=== PATIENT | male | born 1985 ===

== ENCOUNTER 2024-09-12 11:15 | Emergency (ER) | payer SELFPAY ==
--- NOTE | 2024-09-12 11:27 | ED_ITS ---
HPI - Ear Problem General Chief complaint: Ear Stated complaint: Ear Pain Time Seen by Provider: 09/12/24 11:27 Source: patient Mode of arrival: ambulatory Limitations: no limitations History of Present Illness HPI Narrative: 39-year-old male presented for complaint of decreased hearing from the left ear. Onset yesterday after using Q-tips. He states he pushed the wax further into the ear. He denies any ear pain, tenderness, dizziness, ear drainage. MD Complaint: ear pain Review of Systems Review of Systems: CONSTITUTIONAL: Denies malaise, chills, or fever. EYES: Denies visual changes, redness, or discharge. ENT: Denies rhinorrhea, congestion, sinus pain, and sore throat. Reports Dec reased hearing CARDIOVASCULAR: Denies chest pain, palpitations, or edema. RESPIRATORY: Denies cough or dyspnea. GASTROINTESTINAL: Denies abdominal pain, nausea, vomiting, diarrhea SKIN: Denies rash or itching. MUSCULOSKELETAL: Denies myalgia. NEUROLOGIC: Denies headache. All systems reviewed & are unremarkable except as noted in HPI and below PMFSH Social History Social History Smoking status: Current every day smoker Alcohol intake: current Comments At time of signature, agree with nursing past medical, surgical, social and family history. There is no relevant family history pertinent to the presenting complaint Exam Narrative: GENERAL: Well-appearing EYES: PERRLA, conjunctivae clear ENT: Nares clear. Mucous membranes moist. right TM with normal light reflex, mild excess cerumen to the canal. Left TM unable to visualize due to cerumen impaction. Oropharynx not erythematous without lesions. no drooling, no hoarseness, no trismus, uvula midline. NECK: Supple. No lymphadenopathy CHEST: Clear to auscultation, breath sounds equal. HEART: Regular rate and rhythm. SKIN: Warm, dry, no rash. NEURO: Alert and oriented x3. PSYCH: Normal mood and affect Course Course Emergency Course: Patient is aware of diagnosis, understands and agrees to treatment plan. Anticipatory guidance given. Patient agrees to follow-up as directed and is aware of reasons to seek care at the emergency department. Portions of this record may have been created with voice recognition software Level of Care: Express Care Visit Vital Signs Vital signs: Vital Signs Temperature 97.8 F 09/12/24 11:33 Pulse Rate 121 H 09/12/24 11:33 Respiratory Rate 16 09/12/24 11:33 Blood Pressure 146/102 H 09/12/24 11:33 Pulse Oximetry 98 09/12/24 11:33 Temperature 97.8 F 09/12/24 11:33 Pulse Rate 121 H 09/12/24 11:33 Respiratory Rate 16 09/12/24 11:33 Blood Pressure 146/102 H 09/12/24 11:33 Pulse Oximetry 98 09/12/24 11:33 Reviewed Procedures Ear Wax Removal Left Ear: Ear Wax Removal Date: 09/12/24 Cerumenolytic Used: other ( Equal parts warm water and hydrogen peroxide) Results: Re-examined: cerumen removed completely TM Examination: TM(s) intact, normal appearance Ear Canal Exam: atraumatic Patient Tolerated Procedure: well and no complications Technique: ear canal irrigated and ear canal curetted Additional Comments: large amount of soft cerumen removed without difficulty, patient reported immediate improvement in hearing Medical Decision Making MDM Narrative Medical decision making narrative: discussed physical exam findings consistent with left cerumen impaction. Patient tolerated cerumen removal and reported immediate improvement in hearing. Advised supportive measures and signs/symptoms to go to the ER. Patient is appropriate for outpatient treatment and follow-up. Differential Diagnosis Differential Diagnosis: Coronavirus, strep pharyngitis, allergic rhinitis, upper respiratory tract infection, sinusitis, rhinosinusitis, nasopharyngitis, viral pharyngitis, otitis media, otitis externa, eustachian tube dysfunction, foreign body, cerumen impaction. Vital Signs Vital Signs: Vital Signs Temperature 97.8 F 09/12/24 11:33 Pulse Rate 121 H 09/12/24 11:33 Respiratory Rate 16 09/12/24 11:33 Blood Pressure 146/102 H 09/12/24 11:33 Pulse Oximetry 98 09/12/24 11:33 Temperature 97.8 F 09/12/24 11:33 Pulse Rate 121 H 09/12/24 11:33 Respiratory Rate 16 09/12/24 11:33 Blood Pressure 146/102 H 09/12/24 11:33 Pulse Oximetry 98 09/12/24 11:33 Discharge Plan Discharge Clinical Impression: Cerumen impaction Qualifiers: Laterality: left Qualified Code(s): H61.22 - Impacted cerumen, left ear Patient Disposition: Home Condition: Stable Instructions: Antibiotic Form, How to Use Ear Drops (ED) Additional Instructions: Please use a earwax softening agent such as [id number] Debrox or a mixture of 1 part hydrogen peroxide in 1 part warm water several times weekly to keep your earwax soft and prevent further impaction. Please follow-up with your primary care doctor if you develop new symptoms. If you have urgent concerns please go to the ER. Patient Language: Montenegrin Follow-up/Referrals: PHYSICIAN,ICT CUSTOMER SUPPORT OFFICER [Primary Care Provider] - Time of Disposition: 11:45
[2024-09-12 11:33] VITALS: BP 146/102; PULSE 121; RESP 16; TEMP 36.6; O2SAT 98
== END 2024-09-12 11:47 | disposition home or self-care (01) ==
PROVIDERS: Emergency Provider Nurse Practitioner Family
DX: H61.22 Impacted cerumen, left ear (principal); F17.200 Nicotine dependence, unspecified, uncomplicated
CPT/HCPCS: 69210; 99202; A9270; G0463

== ENCOUNTER 2025-01-19 18:47 | Emergency (ER) | payer MEDICAID, SELFPAY ==
[2025-01-19] VITALS (18 sets, daily range): BP systolic 138–161; BP diastolic 91–111; PULSE 86–113; RESP 12–22; O2SAT 92–96
--- NOTE | 2025-01-19 19:01 | ECG_ITS ---
Test Date: 2025-01-19 20:26:29 Measurements Intervals [place] Rate: 103 P: 49 MN: 122 QRS: -10 QRSD: 108 T: 52 QT: 367 QTc: 482 Interpretive Statements SINUS TACHYCARDIA No previous ECG available for comparison Electronically Signed On 01-19-2025 22:35:19 [employer] by Dewey Castano D.O
[2025-01-19 19:15] LABS: Hematocrit 48.8 % (42.0-52.0); Hemoglobin 16.3 g/dL (14.0-18.0); Immature Granulocyte Percent A 0.4 % (0-0.5); Lymphocytes Absolute Auto 2.05 K/mm3 (0.9-3.2); Mean Corpuscular HGB Conc 33.4 g/dl (32-36); Mean Corpuscular Hemoglobin 31.8 pg (26-34); Mean Corpuscular Volume 95.3 fl (80-100); Nucleated Red Blood Cells Absolute Auto 0.000 K/mm3 (0.0-0.012); Nucleated Red Blood Cells Perc 0.0 % (0.0-0.2); Platelet Count Result 194 k/mm3 (150-375); Red Blood Count 5.12 M/mm3 (4.6-6.20); White Blood Count 10.6 K/mm3 (4.5-10.0)
--- NOTE | 2025-01-19 19:16 | ED.GENADULT ---
HPI - General Adult General Chief complaint: Alcohol <Jose Vilchis MD - Last Filed: 01/20/25 22:04> Stated complaint: etoh <Jose Vilchis MD - Last Filed: 01/20/25 22:04> Time Seen by Provider: 01/19/25 18:54 <Jose Vilchis MD - Last Filed: 01/20/25 22:04> History of Present Illness HPI narrative: 39-year-old male present to the emergency department for evaluation of homicidal ideation and depression. Patient reports and 2022 he got . Patient states he has been drinking more and hiding his drinking from his family. Patient also does admit to smoking marijuana today. Patient felt that the emotions were worse and he fell he needed to be evaluated. Patient states he is unsure if he still has homicidal ideation. <Jose Vilchis MD - Last Filed: 01/20/25 22:04> Related Data Home medications: Home Medications ?Medication ?Instructions ?Recorded ?Confirmed ?Last Taken ?Type allopurinol 100 mg tablet mg 09/12/24 Unknown History bupropion HCl 150 mg 24 hr tablet, mg PO 09/12/24 Unknown History extended release clonazepam 1 mg tablet mg 09/12/24 Unknown History sertraline 100 mg tablet mg 09/12/24 Unknown History tadalafil 5 mg tablet mg 09/12/24 Unknown History trazodone 100 mg tablet mg 09/12/24 Unknown History <Jose Vilchis MD - Last Filed: 01/20/25 22:04> Allergies/adverse reactions: Allergies Allergy/AdvReac Type Severity Reaction Status Date / Time No Known Allergies Allergy Verified 01/19/25 19:00 <Jose Vilchis MD - Last Filed: 01/20/25 22:04> Review of Systems Review of Systems: All systems reviewed & are unremarkable except as noted in HPI and below <Jose Vilchis MD - Last Filed: 01/20/25 22:04> [facility] Social History Social History: Social History Smoking status: Current every day smoker Alcohol intake: current <Jose Vilchis MD - Last Filed: 01/20/25 22:04> Exam Narrative: APPEARANCE: depressed affect HEAD: normocephalic, atraumatic. EYES: PERRLA/EOMI, conjunctivae clear. NOSE: Normal no drainage EARS:TMS clear with good light reflex. THROAT: Pharynx clear, no exudate. NECK: Supple. No adenopathy, no masses. RESPIRATORY: Airway patent, respirations nonlabored. Clear to auscultation bilaterally, no rales, rhonchi, wheezing. CARDIOVASCULAR: Regular rate and rhythm without murmurs rubs or gallops. ABDOMINAL: Soft, nontender, nondistended, normal bowel sounds MUSCULOSKELETAL: Moves all extremities. Strength/ROM intact, No edema, No calf tenderness. NEURO: Alert. Cranial nerves II through XII intact. Good gait. Good coordination SKIN: Warm, dry. Normal Color <Jose Vilchis MD - Last Filed: 01/20/25 22:04> Course Course Emergency Course: Patient signed out to me. No issues overnight. Repeat EtOH 87 which has likely metabolized within the time period it took for the lab to result. Patient medically cleared for assessment by psych/crisis. Patient then noted to be slightly tremulous by the RN. Notably patient not been taking his Klonopin and per review it appears that dose is 1 mg b.i.d.. He reportedly had told the nurse that at baseline he also has a slight tremor. CIWA 6; home dose Klonipin given. Repeat CIWA 2 but reportedly tells nurse still a bit anxious. I did evaluate the patient at bedside and he does appear to be slightly tremulous and states that he was diaphoretic. Mom is at bedside and he says that she can stay. Mother has been in touch with patient's therapist who notes she can be contacted if desired. He reports going through a difficult divorce. He is supposed to be on Klonipin, sertraline, and trazadone QHS. Last alcohol consumption was 5 p.m.. He has been drinking heavily for approximately 2 years. No previous history of withdrawal or complicated withdrawal though he does believe he is withdrawing at this time. Repeat CIWA 7; 25mg chlordiazepoxide ordered. Will be signed out to oncoming ED physician. <Neeru Sawant MD - Last Filed: 01/20/25 06:51> Patient signed out to me. No issues overnight. Repeat EtOH 87 which has likely metabolized within the time period it took for the lab to result. Patient medically cleared for assessment by psych/crisis. Patient then noted to be slightly tremulous by the RN. Notably patient not been taking his Klonopin and per review it appears that dose is 1 mg b.i.d.. He reportedly had told the nurse that at baseline he also has a slight tremor. CIWA 6; home dose Klonipin given. Repeat CIWA 2 but reportedly tells nurse still a bit anxious. I did evaluate the patient at bedside and he does appear to be slightly tremulous and states that he was diaphoretic. Mom is at bedside and he says that she can stay. Mother has been in touch with patient's therapist who notes she can be contacted if desired. He reports going through a difficult divorce. He is supposed to be on Klonipin, sertraline, and trazadone QHS. Last alcohol consumption was 5 p.m.. He has been drinking heavily for approximately 2 years. No previous history of withdrawal or complicated withdrawal though he does believe he is withdrawing at this time. Repeat CIWA 7; 25mg chlordiazepoxide ordered. Will be signed out to oncoming ED physician. I assumed care of the patient at of 700. Patient had some mild anxiety after vomiting up his Librium. He was given some IV fluid as well as antiemetics and Valium. He was redosed with his Librium and tolerated transfer to outside facility which accepted him as a involuntary transfer after crisis evaluation. <Long Almazan MD - Last Filed: 01/20/25 19:52> Vital Signs Vital signs: Vital Signs Pulse Rate 111 H 01/19/25 18:43 Respiratory Rate 16 01/19/25 18:43 Blood Pressure 161/106 H 01/19/25 18:43 Pulse Oximetry 92 01/19/25 18:43 Oxygen Delivery Room Air 01/19/25 18:43 Temperature 98.5 F 01/20/25 10:34 Pulse Rate 86 01/20/25 13:30 Respiratory Rate 18 01/20/25 13:30 Blood Pressure 145/106 H 01/20/25 13:04 Pulse Oximetry 97 01/20/25 13:30 Oxygen Delivery Room Air 01/19/25 18:43 <Jose Vilchis MD - Last Filed: 01/20/25 22:04> Vital Signs Pulse Rate 111 H 01/19/25 18:43 Respiratory Rate 16 01/19/25 18:43 Blood Pressure 161/106 H 01/19/25 18:43 Pulse Oximetry 92 01/19/25 18:43 Oxygen Delivery Room Air 01/19/25 18:43 Temperature 98.5 F 01/20/25 10:34 Pulse Rate 86 01/20/25 13:30 Respiratory Rate 18 01/20/25 13:30 Blood Pressure 145/106 H 01/20/25 13:04 Pulse Oximetry 97 01/20/25 13:30 Oxygen Delivery Room Air 01/19/25 18:43 <Neeru Sawant MD - Last Filed: 01/20/25 06:51> Vital Signs Pulse Rate 111 H 01/19/25 18:43 Respiratory Rate 16 01/19/25 18:43 Blood Pressure 161/106 H 01/19/25 18:43 Pulse Oximetry 92 01/19/25 18:43 Oxygen Delivery Room Air 01/19/25 18:43 Temperature 98.5 F 01/20/25 10:34 Pulse Rate 86 01/20/25 13:30 Respiratory Rate 18 01/20/25 13:30 Blood Pressure 145/106 H 01/20/25 13:04 Pulse Oximetry 97 01/20/25 13:30 Oxygen Delivery Room Air 01/19/25 18:43 <Long Almazan MD - Last Filed: 01/20/25 19:52> Medical Decision Making MDM Narrative Medical decision making narrative: 39-year-old male present to the emergency department for evaluation for depression associated with a divorce from 2022. Patient is heavily intoxicated at time of initial evaluation. Patient is afebrile but does have a leukocytosis of 10.6 and hemoglobin of 16.3. INR 0.9. No significant abnormalities on his CMP. Patient does have mild elevation AST and ALT with a normal alk-phos and normal T bili. UA was positive for ketones but negative for infection. Patient was negative for salicylates, acetaminophen but did have a blood alcohol of 344 at 7:00 p.m. repeat blood alcohol is pending. Once patient is sober he will need to be evaluated by crisis. Patient was evaluated by crisis and patient was accepted for inpatient psychiatric hospitalization. Patient was well-appearing at time of transport. <Jose Vilchis MD - Last Filed: 01/20/25 22:04> Differential Diagnosis Differential Diagnosis: Suicidal ideation, homicidal ideation, alcohol intoxication <Jose Vilchis MD - Last Filed: 01/20/25 22:04> Vital Signs Vital Signs: Vital Signs Pulse Rate 111 H 01/19/25 18:43 Respiratory Rate 16 01/19/25 18:43 Blood Pressure 161/106 H 01/19/25 18:43 Pulse Oximetry 92 01/19/25 18:43 Oxygen Delivery Room Air 01/19/25 18:43 Temperature 98.5 F 01/20/25 10:34 Pulse Rate 86 01/20/25 13:30 Respiratory Rate 18 01/20/25 13:30 Blood Pressure 145/106 H 01/20/25 13:04 Pulse Oximetry 97 01/20/25 13:30 Oxygen Delivery Room Air 01/19/25 18:43 <Jose Viclhis MD - Last Filed: 01/20/25 22:04> Vital Signs Pulse Rate 111 H 01/19/25 18:43 Respiratory Rate 16 01/19/25 18:43 Blood Pressure 161/106 H 01/19/25 18:43 Pulse Oximetry 92 01/19/25 18:43 Oxygen Delivery Room Air 01/19/25 18:43 Temperature 98.5 F 01/20/25 10:34 Pulse Rate 86 01/20/25 13:30 Respiratory Rate 18 01/20/25 13:30 Blood Pressure 145/106 H 01/20/25 13:04 Pulse Oximetry 97 01/20/25 13:30 Oxygen Delivery Room Air 01/19/25 18:43 <Neeru Sawant MD - Last Filed: 01/20/25 06:51> Vital Signs Pulse Rate 111 H 01/19/25 18:43 Respiratory Rate 16 01/19/25 18:43 Blood Pressure 161/106 H 01/19/25 18:43 Pulse Oximetry 92 01/19/25 18:43 Oxygen Delivery Room Air 01/19/25 18:43 Temperature 98.5 F 01/20/25 10:34 Pulse Rate 86 01/20/25 13:30 Respiratory Rate 18 01/20/25 13:30 Blood Pressure 145/106 H 01/20/25 13:04 Pulse Oximetry 97 01/20/25 13:30 Oxygen Delivery Room Air 01/19/25 18:43 <Long Almazan MD - Last Filed: 01/20/25 19:52> Lab Data Lab results reviewed: Yes I reviewed the patient's lab results. <Jose Vilchis MD - Last Filed: 01/20/25 22:04> Result diagrams: 01/19/25 19:09 01/19/25 19:09 <Jose Vilchis MD - Last Filed: 01/20/25 22:04> Labs: Lab Results 01/19/25 01/19/25 01/20/25 Range/Units 19:09 19: 04:58 WBC 10.6 H (4.5-10.0) K/mm3 RBC 5.12 (4.6-6.20) M/mm3 Hgb 16.3 (14.0-18.0) g/dL Hct 48.8 (42.0-52.0) % MCV 95.3 (80-100) fl MCH 31.8 (26-34) pg MCHC 33.4 (32-36) g/dl RDW 14.1 (11.5-14.5) % Plt Count 194 (150-375) k/mm3 MPV 8.5 (7.4-10.4) fl Immature Gran % (Auto) 0.4 (0-0.5) % Neut % (Auto) 71.0 (45.5-73.1) % Lymph % (Auto) 19.3 (18.3-44.2) % Josephine % (Auto) 6.7 (2.6-8.5) % Eos % (Auto) 1.8 (0-4.4) % Baso % (Auto) 0.8 (0.2-1.2) % Lymph # (Auto) 2.05 (0.9-3.2) K/mm3 Josephine # (Auto) 0.7 H (0.1-0.6) K/mm3 Eos # (Auto) 0.2 (0-0.3) K/mm3 Baso # (Auto) 0.1 (0.0-0.1) K/mm3 Abs Immat Gran (auto) 0.04 H (0.00-0.031) K/mm3 Absolute Neuts (auto) 7.5 H (1.3-6.7) K/mm3 Absolute Nucleated RBC 0.000 (0.0-0.012) K/mm3 Nucleated RBC % 0.0 (0.0-0.2) % PT 12.2 (11.1-14.7) Seconds INR 0.9 APTT 26.9 (22.3-36.8) Seconds Sodium 142 (137-145) mmol/L Potassium 4.1 (3.4-5.0) mmol/L Chloride 101 (98-107) mmol/L Carbon Dioxide 22 (22-30) mmol/L Anion Gap 19 H (4-12) mmol/L BUN 12 (9-20) mg/dL Creatinine 0.87 (0.7-1.3) mg/dL Estim Creat Clear Calc 124 ml/min Estimated GFR > 60 (59 - ) Glucose 85 (65-110) mg/dL Calcium 9.4 (8.4-10.2) mg/dL Total Bilirubin 0.4 (0.2-1.3) mg/dL AST 499 H (17-59) U/L ALT 460 H (6-50) U/L Alkaline Phosphatase 113 (38-126) U/L Total Protein 8.9 H (6.3-8.2) g/dL Albumin 5.2 H (3.5-5.1) g/dL Urine Color Yellow (Yellow) Urine Appearance Clear (Clear) Urine pH 6.0 (5.0-9.0) Ur Specific [place] 1.015 (1.001-1.035) Urine Protein 3+ H (Negative) mg/dL Urine Glucose (UA) Negative (Negative) mg/dL Urine Ketones 1+ H (Negative) mg/dL Ur Blood (Man) Trace (Negative) Urine Nitrate Negative (Negative) Urine Bilirubin Negative (Negative) Urine Urobilinogen 0.2 (<2.0) mg/dL Leukocyte Esterase Rfl Negative (Negative) KIRSTEN/UL Urine RBC 0-2 (0-2) /hpf Urine WBC 0-5 (0-3) /hpf Ur Squamous Epith Cells None seen (Few) /hpf Urine Bacteria None seen /hpf Urine Casts 3-5 Salicylates < 1.0 L (2-20) mg/dL Urine Opiates Screen Negative (Negative) Urine Methadone Screen Negative (Negative) Acetaminophen < 10 L (10-30) ug/mL Ur Barbiturates Screen Negative (Negative) Ur Phencyclidine Scrn Negative (Negative) Ur Amphetamine Screen Negative (Negative) U Benzodiazepines Scrn Negative (Negative) Urine Cocaine Screen Negative (Negative) U Cannabinoids Screen Positive A (Negative) Ethyl Alcohol 344 H* 89 (<10) mg/dL Influenza A (RT-PCR) Negative (Negative) Influenza B (RT-PCR) Negative (Negative) RSV (RT-PCR) Negative (Negative) SARS-CoV-2 RNA (RT-PCR) Negative (Negative) <Jose Vilchis MD - Last Filed: 01/20/25 22:04> Lab Results 01/19/25 01/19/25 01/20/25 Range/Units 19:09 19:25 04:58 WBC 10.6 H (4.5-10.0) K/mm3 RBC 5.12 (4.6-6.20) M/mm3 Hgb 16.3 (14.0-18.0) g/dL Hct 48.8 (42.0-52.0) % MCV 95.3 (80-100) fl MCH 31.8 (26-34) pg MCHC 33.4 (32-36) g/dl RDW 14.1 (11.5-14.5) % Plt Count 194 (150-375) k/mm3 MPV 8.5 (7.4-10.4) fl Immature Gran % (Auto) 0.4 (0-0.5) % Neut % (Auto) 71.0 (45.5-73.1) % Lymph % (Auto) 19.3 (18.3-44.2) % Josephine % (Auto) 6.7 (2.6-8.5) % Eos % (Auto) 1.8 (0-4.4) % Baso % (Auto) 0.8 (0.2-1.2) % Lymph # (Auto) 2.05 (0.9-3.2) K/mm3 Josephine # (Auto) 0.7 H (0.1-0.6) K/mm3 Eos # (Auto) 0.2 (0-0.3) K/mm3 Baso # (Auto) 0.1 (0.0-0.1) K/mm3 Abs Immat Gran (auto) 0.04 H (0.00-0.031) K/mm3 Absolute Neuts (auto) 7.5 H (1.3-6.7) K/mm3 Absolute Nucleated RBC 0.000 (0.0-0.012) K/mm3 Nucleated RBC % 0.0 (0.0-0.2) % PT 12.2 (11.1-14.7) Seconds INR 0.9 APTT 26.9 (22.3-36.8) Seconds Sodium 142 (137-145) mmol/L Potassium 4.1 (3.4-5.0) mmol/L Chloride 101 (98-107) mmol/L Carbon Dioxide 22 (22-30) mmol/L Anion Gap 19 H (4-12) mmol/L BUN 12 (9-20) mg/dL Creatinine 0.87 (0.7-1.3) mg/dL Estim Creat Clear Calc 124 ml/min Estimated GFR > 60 (59 - ) Glucose 85 (65-110) mg/dL Calcium 9.4 (8.4-10.2) mg/dL Total Bilirubin 0.4 (0.2-1.3) mg/dL AST 499 H (17-59) U/L ALT 460 H (6-50) U/L Alkaline Phosphatase 113 (38-126) U/L Total Protein 8.9 H (6.3-8.2) g/dL Albumin 5.2 H (3.5-5.1) g/dL Urine Color Yellow (Yellow) Urine Appearance Clear (Clear) Urine pH 6.0 (5.0-9.0) Ur Specific [place] 1.015 (1.001-1.035) Urine Protein 3+ H (Negative) mg/dL Urine Glucose (UA) Negative (Negative) mg/dL Urine Ketones 1+ H (Negative) mg/dL Ur Blood (Man) Trace (Negative) Urine Nitrate Negative (Negative) Urine Bilirubin Negative (Negative) Urine Urobilinogen 0.2 (<2.0) mg/dL Leukocyte Esterase Rfl Negative (Negative) KIRSTEN/UL Urine RBC 0-2 (0-2) /hpf Urine WBC 0-5 (0-3) /hpf Ur Squamous Epith Cells None seen (Few) /hpf Urine Bacteria None seen /hpf Urine Casts 3-5 Salicylates < 1.0 L (2-20) mg/dL Urine Opiates Screen Negative (Negative) Urine Methadone Screen Negative (Negative) Acetaminophen < 10 L (10-30) ug/mL Ur Barbiturates Screen Negative (Negative) Ur Phencyclidine Scrn Negative (Negative) Ur Amphetamine Screen Negative (Negative) U Benzodiazepines Scrn Negative (Negative) Urine Cocaine Screen Negative (Negative) U Cannabinoids Screen Positive A (Negative) Ethyl Alcohol 344 H* 89 (<10) mg/dL Influenza A (RT-PCR) Negative (Negative) Influenza B (RT-PCR) Negative (Negative) RSV (RT-PCR) Negative (Negative) SARS-CoV-2 RNA (RT-PCR) Negative (Negative) <Neeru Sawant MD - Last Filed: 01/20/25 06:51> Lab Results 01/19/25 01/19/25 01/20/25 Range/Units 19:09 19: 04:58 WBC 10.6 H (4.5-10.0) K/mm3 RBC 5.12 (4.6-6.20) M/mm3 Hgb 16.3 (14.0-18.0) g/dL Hct 48.8 (42.0-52.0) % MCV 95.3 (80-100) fl MCH 31.8 (26-34) pg MCHC 33.4 (32-36) g/dl RDW 14.1 (11.5-14.5) % Plt Count 194 (150-375) k/mm3 MPV 8.5 (7.4-10.4) fl Immature Gran % (Auto) 0.4 (0-0.5) % Neut % (Auto) 71.0 (45.5-73.1) % Lymph % (Auto) 19.3 (18.3-44.2) % Josephine % (Auto) 6.7 (2.6-8.5) % Eos % (Auto) 1.8 (0-4.4) % Baso % (Auto) 0.8 (0.2-1.2) % Lymph # (Auto) 2.05 (0.9-3.2) K/mm3 Josephine # (Auto) 0.7 H (0.1-0.6) K/mm3 Eos # (Auto) 0.2 (0-0.3) K/mm3 Baso # (Auto) 0.1 (0.0-0.1) K/mm3 Abs Immat Gran (auto) 0.04 H (0.00-0.031) K/mm3 Absolute Neuts (auto) 7.5 H (1.3-6.7) K/mm3 Absolute Nucleated RBC 0.000 (0.0-0.012) K/mm3 Nucleated RBC % 0.0 (0.0-0.2) % PT 12.2 (11.1-14.7) Seconds INR 0.9 APTT 26.9 (22.3-36.8) Seconds Sodium 142 (137-145) mmol/L Potassium 4.1 (3.4-5.0) mmol/L Chloride 101 (98-107) mmol/L Carbon Dioxide 22 (22-30) mmol/L Anion Gap 19 H (4-12) mmol/L BUN 12 (9-20) mg/dL Creatinine 0.87 (0.7-1.3) mg/dL Estim Creat Clear Calc 124 ml/min Estimated GFR > 60 (59 - ) Glucose 85 (65-110) mg/dL Calcium 9.4 (8.4-10.2) mg/dL Total Bilirubin 0.4 (0.2-1.3) mg/dL AST 499 H (17-59) U/L ALT 460 H (6-50) U/L Alkaline Phosphatase 113 (38-126) U/L Total Protein 8.9 H (6.3-8.2) g/dL Albumin 5.2 H (3.5-5.1) g/dL Urine Color Yellow (Yellow) Urine Appearance Clear (Clear) Urine pH 6.0 (5.0-9.0) Ur Specific [place] 1.015 (1.001-1.035) Urine Protein 3+ H (Negative) mg/dL Urine Glucose (UA) Negative (Negative) mg/dL Urine Ketones 1+ H (Negative) mg/dL Ur Blood (Man) Trace (Negative) Urine Nitrate Negative (Negative) Urine Bilirubin Negative (Negative) Urine Urobilinogen 0.2 (<2.0) mg/dL Leukocyte Esterase Rfl Negative (Negative) KIRSTEN/UL Urine RBC 0-2 (0-2) /hpf Urine WBC 0-5 (0-3) /hpf Ur Squamous Epith Cells None seen (Few) /hpf Urine Bacteria None seen /hpf Urine Casts 3-5 Salicylates < 1.0 L (2-20) mg/dL Urine Opiates Screen Negative (Negative) Urine Methadone Screen Negative (Negative) Acetaminophen < 10 L (10-30) ug/mL Ur Barbiturates Screen Negative (Negative) Ur Phencyclidine Scrn Negative (Negative) Ur Amphetamine Screen Negative (Negative) U Benzodiazepines Scrn Negative (Negative) Urine Cocaine Screen Negative (Negative) U Cannabinoids Screen Positive A (Negative) Ethyl Alcohol 344 H* 89 (<10) mg/dL Influenza A (RT-PCR) Negative (Negative) Influenza B (RT-PCR) Negative (Negative) RSV (RT-PCR) Negative (Negative) SARS-CoV-2 RNA (RT-PCR) Negative (Negative) <Long Almazan MD - Last Filed: 01/20/25 19:52> Discharge Plan Discharge Clinical Impression: Alcoholic intoxication, Suicidal ideation <Jose Vilchis MD - Last Filed: 01/20/25 22:04> Patient Disposition: Psychiatric Hosp <Jose Vilchis MD - Last Filed: 01/20/25 22:04> Condition: Stable <Joes Vilchis MD - Last Filed: 01/20/25 22:04> Patient Language: Jamaican <Jose Vilchis MD - Last Filed: 01/20/25 22:04> Prescriptions: No Action sertraline 100 mg tablet clonazepam 1 mg tablet allopurinol 100 mg tablet trazodone 100 mg tablet bupropion HCl 150 mg tablet extended release 24 hr PO tadalafil 5 mg tablet <Jose Vilchis MD - Last Filed: 01/20/25 22:04> Follow-up/Referrals: PHYSICIAN,QUEEN'S COUNSEL [Primary Care Provider, Internal Medicine] <Jose Vilchis MD - Last Filed: 01/20/25 22:04>
[2025-01-19 19:32] LABS: INR 0.9; Prothrombin Time 12.2 Seconds (11.1-14.7)
[2025-01-19 19:33] LABS: Alanine Aminotransferase 460 U/L (6-50); Albumin Level 5.2 g/dL (3.5-5.1); Alkaline Phosphatase 113 U/L (38-126); Anion Gap 19 mmol/L (4-12); Aspartate Amino Transferase 499 U/L (17-59); Bilirubin,Total 0.4 mg/dL (0.2-1.3); Blood Urea Nitrogen 12 mg/dL (9-20); Calcium 9.4 mg/dL (8.4-10.2); Carbon Dioxide 22 mmol/L (22-30); Chloride 101 mmol/L (98-107); Estimated CRCL calculation 124 ml/min; Estimated Glomerular Filt Rate > 60; Glucose 85 mg/dL (65-110); Potassium 4.1 mmol/L (3.4-5.0); Sodium 142 mmol/L (137-145); Total Protein 8.9 g/dL (6.3-8.2)
[2025-01-19 19:34] LABS: Partial Thromboplastin Time 26.9 Seconds (22.3-36.8)
[2025-01-19 19:48] LABS: Acetaminophen < 10 ug/mL (10-30); Salicylate < 1.0 mg/dL (2-20)
[2025-01-19 20:04] LABS: Influenza A QL RT-PCR Negative (Negative); Influenza B QL RT-PCR Negative (Negative); RSV RNA, RT-PCR Negative (Negative); SARS-CoV-2 RNA PCR Negative (Negative)
[2025-01-19 20:09] LABS: Cannabinoid Screen Urine Positive (Negative)
[2025-01-19 20:10] LABS: Add Urine Microscopic? YES; Appearance Urine Clear (Clear); Glucose Urine UA Negative (Negative); Leukocyte Esterase Ur Negative LEU/UL (Negative); Nitrate Urine Negative (Negative); Specific Grav Ur 1.015 (1.001-1.035)
[2025-01-20] VITALS (36 sets, daily range): BP systolic 145–176; BP diastolic 90–112; PULSE 68–108; RESP 15–22; TEMP 36.6–36.9; O2SAT 92–97
[2025-01-20] MEDS: clonazePAM (*CRX) 0.5 MG TABLET 1 MG PO (05:07)
[2025-01-20] MEDS: chlordiazePOXIDE (*CRX) 25 MG CAPSULE PO ×3 (06:49→13:42)
[2025-01-20] MEDS: ONDANSETRON INJ 4 MG/2 ML VIAL IV PUSH (08:38)
[2025-01-20] MEDS: PANTOPRAZOLE SODIUM IV 40 MG VIAL IV PUSH (08:38)
[2025-01-20] MEDS: SODIUM CHLORIDE 0.9% IV 1,000 ML 999 ML IV CONT (08:38)
--- NOTE | 2025-01-20 10:17 | PC.NURSE ---
Araceli Wallace called to speak with the patient at [phone]
--- NOTE | 2025-01-20 10:17 | PC.NURSE ---
[facility] at [place] [facility] called to speak to the patient at [phone]
--- NOTE | 2025-01-20 10:28 | PC.NURSE ---
[facility] at [facility] called for vitals at [phone]
--- NOTE | 2025-01-20 10:51 | PC.NURSE ---
Pt was accepted at [facility] by Dr. Pollard. Nurse to nurse report to be called to [phone]
--- NOTE | 2025-01-20 11:22 | PC.NURSE ---
Called [facility] to give report to Kerry at [phone], was asked to call back in 15 minutes.
[2025-01-20] MEDS: diazePAM INJ (*CRX) 10 MG/2 ML SYRINGE 5 MG IV PUSH (11:52)
--- NOTE | 2025-01-20 13:50 | PC.NURSE ---
Pt's tremors improving, pt continued to report feeling jittery and anxious. Discussed with MD Almazan, pt give PO Librium prior to transport. Pt given ice water and saltine crackers to attempt eating, as pt states he has not had any appetite. IV removed prior to transport. EMS given report, pt ambulated to EMS stretcher, [facility] called by RN to inform them of his departure from [place] at this time. Pt left ED with all of his personal belongings, including phone and watch.
== END 2025-01-20 13:55 ==
PROVIDERS: Emergency Medicine; Emergency Provider Emergency Medicine
DX: F10.129 Alcohol abuse with intoxication, unspecified (principal); Y90.8 Blood alcohol level of 240 mg/100 ml or more; R45.851 Suicidal ideations; F12.90 Cannabis use, unspecified, uncomplicated; F17.210 Nicotine dependence, cigarettes, uncomplicated; Z20.822 Contact with and (suspected) exposure to COVID-19
CPT/HCPCS: 36415; 80053; 80143; 80179; 80307; 81001; 82077; 85025; 85610; 85730; 87637; 93005; 96361; 96374; 96375; 99285; A9270; J2405; J2470; J3360; J7030